=== PATIENT | female | born 1965 | race African-American/Black ===

== ENCOUNTER 2019-08-19 15:59 | Emergency (ER) | payer MEDICAID ==
[~2019-08-19] VITALS: Ht 160 cm; Wt 68.9 kg
[2019-08-19] MEDS ORDERED: ATORVASTATIN CA10 MG ORAL (16:12)
[2019-08-19] MEDS ORDERED: NORVASC10 MG ORAL (16:12)
[2019-08-19] MEDS ORDERED: PRILOSEC OTC20 MG ORAL (16:12)
--- NOTE | 2019-08-19 16:28 | NUR ---
ED Nurse Note: Pt walked in from home. Pt injured R foot on dresser thursday. Pt complains of pain 3/10 weight bearingn and 6/10 non-weight bearing. Pt also has numbness interior side of R foot. Patient alert and orientedx4.
--- NOTE | 2019-08-19 16:30 | NUR ---
ED Nurse Note: x-ray at bedside.
--- NOTE | 2019-08-19 16:57 | Emergency Room Report ---
History of Present Illness General Chief Complaint: Lower Extremity Injury Source: Patient Present Illness HPI 54-year-old female with no segment past medical history here complaining of pain and swelling right foot after having it hit her dresser yesterday. Third and fourth phalanges of the right foot are tender to palpation and swollen. Patient has reduced range of motion of the affected side. No ecchymosis noted. Patient denies tingling and numbness. Patient reports that she has had surgery in the same foot few years ago. Denies any pain radiation, tingling and numbness, and calf tenderness. Has not taken medication for symptom relief other than [id number] Motrin. Patient is walking with a limp and is rating the pain 10 out of 10 at this time. Denies other associated symptoms such as chest pain, shortness of breath, palpitation, no other associated symptoms. Allergies: Coded Allergies: CODEINE (Verified Allergy, Unknown, 12/07/11) Patient History Past Medical History: see triage record Past Surgical History: unable to obtain Pertinent Family History: none Last Menstrual Period: hysterectomy 2009 Now: No Immunizations: UTD Reviewed Nursing Documentation: PMH: Agreed; PSxH: Agreed Nursing Documentation-PMH Past Medical History: No History, Except For Hx Hypertension: Yes Review of Systems All Other Systems: negative except mentioned in HPI Physical Exam Vital Signs Date Time Temp Pulse Resp B/P (MAP) Pulse Ox O2 Delivery O2 Flow Rate FiO2 08/19/19 16:05 98.2 76 18 166/103 (124) 98 Room Air Sp02 EP Interpretation: reviewed, normal General Appearance: no apparent distress, alert, GCS 15, non-toxic Head: normocephalic, atraumatic Eyes: bilateral eye normal inspection, bilateral eye PERRL ENT: hearing grossly normal, normal pharynx, no angioedema, normal voice Neck: full range of motion, supple/symm/no masses Respiratory: chest non-tender, lungs clear, normal breath sounds, no rhonchi, speaking full sentences Cardiovascular #1: regular rate, rhythm, no edema, no murmur Cardiovascular #2: 2+ dorsalis pedis (R), 2+ dorsalis pedis (L) Gastrointestinal: normal bowel sounds, non tender, soft, non-distended, no guarding, no rebound Genitourinary: no CVA tenderness Musculoskeletal: back normal, tender - Right third and fourth phalanges of the foot Neurologic: normal inspection, alert, oriented x3 Psychiatric: judgement/insight normal, memory normal, mood/affect normal, no suicidal/homicidal ideation Skin: no rash Lymphatic: normal inspection, no adenopathy Procedures Splinting Splinting : Consent: Verbal Location: right foot Splint: poserior short Pre-Proc Neuro Vasc Exam: normal Post-Proc Neuro Vasc Exam: normal Patient Tolerated: Well Complications: None Progress crutches were provided Medical Decision Making PA Attestation All diagnoses and treatment plans were reviewed and discussed with my supervising physician Dr. Goodrich Diagnostic Impression: Primary Impression: Right foot injury Additional Impression: Foot fracture, right ER Course 54-year-old female with no segment past medical history here complaining of pain and swelling right foot after having it hit her dresser yesterday. Third and fourth phalanges of the right foot are tender to palpation and swollen. Patient has reduced range of motion of the affected side. No ecchymosis noted. Patient denies tingling and numbness. Patient reports that she has had surgery in the same foot few years ago. Denies any pain radiation, tingling and numbness, and calf tenderness. Has not taken medication for symptom relief other than [id number] Motrin. Patient is walking with a limp and is rating the pain 10 out of 10 at this time. Denies other associated symptoms such as chest pain, shortness of breath, palpitation, no other associated symptoms. Ddx considered but are not limited to: foot fracture, foot sprain, foot contusion, foot strain Vital signs: are WNL, pt. is afebrile H&PE are most consistent with: Foot fracture ORDERS: foot Xray, ibuprofen, Tylenol, splint and crutches ED INTERVENTIONS: None required at this time. DISCHARGE: At this time pt. is stable for d/c to home. Will provide printed patient care instructions, and any necessary prescriptions. Care plan and follow up instructions have been discussed with the patient prior to discharge. Patient to follow-up with sales account specialist through her primary care first if worsening symptoms return to emergency room. Patient was handed a copy of her x-ray report Other X-Ray Diagnostic Results Other X-Ray Diagnostic Results : X-Ray ordered: foot xray right # of Views/Limited Vs Complete: 3 View Indication: Pain EP Interpretation: Yes PA Xray: Interpretation reviewed, by supervising MD, and agrees with findings. Interpretation: other - fx right forth phalax Impression: Other - foot fx Electronically Signed by: Wes Pascal PA-C Last Vital Signs Date Time Temp Pulse Resp B/P (MAP) Pulse Ox O2 Delivery O2 Flow Rate FiO2 08/19/19 16:05 98.2 76 18 166/103 (124) 98 Room Air Disposition: HOME, SELF-CARE Condition: Stable Scripts Acetaminophen* (TYLENOL EXTRA STRENGTH*) 500 Mg Tablet 500 MG ORAL Q6H PRN for Mild Pain/Temp > 100.5, #30 TAB 0 Refills Prov: Wes Frank 08/19/19 Ibuprofen (Ibu) 800 Mg Tablet 800 MG PO TID, #21 TAB Prov: Wes Frank 08/19/19 Patient Instructions: Toe Fracture Additional Instructions: Keep splint on until seen by sales account specialist due to his clinical examination of tenderness to palpation at the site of injury it is advised to keep the splint on. If worsening symptoms return to the emergency room. Wes Frank Aug 19, 2019 16:57
[2019-08-19] MEDS ORDERED: IBU800 MG PO (16:58)
[2019-08-19] MEDS ORDERED: TYLENOL EXTRA500 MG ORAL (16:59)
--- NOTE | 2019-08-19 17:38 | NUR ---
ED Nurse Note: splint applied RT leg by rehab nursing tech at bedside.
--- NOTE | 2019-08-19 17:54 | Diagnostic Imaging Report ---
EXAM: XR Right Foot Complete, 3 or More Views CLINICAL HISTORY: TRAUMA TECHNIQUE: Frontal, lateral and oblique views of the right foot. COMPARISON: None FINDINGS: Bones joints: Nondisplaced fracture of the right fourth proximal phalanx. Osteopenia. Postsurgical change in the right first proximal phalanx. Mild degenerative changes of the right first MTP joint. Soft tissues: Soft tissue swelling of the dorsal right forefoot and right fourth digit. IMPRESSION: 1. Nondisplaced fracture of the right fourth proximal phalanx. 2. Soft tissue swelling.
[2019-08-19 17:57] VITALS: BP 124/76
--- NOTE | 2019-08-19 17:59 | NUR ---
ER DISCHARGE NOTE: Patient is cleared to be discharged per ERMD, pt is aox4, on room air, with stable vital signs. pt was given dc and prescription instructions, pt was able to verbalize understanding, pt id band removed . pt is able to ambulate with steady gait. pt took all belongings.
== END 2019-08-19 18:00 | disposition home or self-care (01) ==
LOC: EMR 16:30
DX: S92.514A Nondisplaced fracture of proximal phalanx of right lesser toe(s), initial encounter for closed fracture (principal); I10 Essential (primary) hypertension; W22.09XA Striking against other stationary object, initial encounter; Y93.9 Activity, unspecified; Y92.9 Unspecified place or not applicable; Z90.710 Acquired absence of both cervix and uterus; Z88.5 Allergy status to narcotic agent
CPT/HCPCS: 29515; 73630; Z7502; 99283

== ENCOUNTER 2019-08-20 08:58 | Emergency (ER) | payer MEDICAID ==
[~2019-08-20] VITALS: Ht 162.6 cm; Wt 69.9 kg
[~2019-08-20 08:58] MED LIST: ATORVASTATIN CA10 MG ORAL; IBU800 MG PO; NORVASC10 MG ORAL; PRILOSEC OTC20 MG ORAL; TYLENOL EXTRA500 MG ORAL
--- NOTE | 2019-08-20 09:22 | Emergency Room Report ---
History of Present Illness General Chief Complaint: General Complaint Source: Patient, Medical Record Present Illness HPI Patient presents with complaints of shifting and moving of her splint that was applied yesterday patient was diagnosed with a right toe Fracture She denies any repeat injury denies any other fall since then most of the discomfort is at the lateral Fourth toe As the splint was essentially falling off she presents for further evaluation Allergies: Coded Allergies: CODEINE (Verified Allergy, Unknown, 12/07/11) Patient History Past Medical History: see triage record Last Menstrual Period: N/A Now: No - hysterectomy 2009 Reviewed Nursing Documentation: PMH: Agreed; PSxH: Agreed Nursing Documentation-PMH Hx Cardiac Problems: No - Arthritis, Hypercholesterolemia Hx Hypertension: Yes Review of Systems All Other Systems: negative except mentioned in HPI Physical Exam Vital Signs Date Time Temp Pulse Resp B/P (MAP) Pulse Ox O2 Delivery O2 Flow Rate FiO2 08/20/19 09:03 98.8 80 15 159/90 (113) 97 Room Air Sp02 EP Interpretation: reviewed, normal General Appearance: well appearing, no apparent distress Head: normocephalic, atraumatic Eyes: bilateral eye PERRL ENT: hearing grossly normal, normal pharynx Neck: supple Musculoskeletal: other - Mild swelling noted to the lateral foot, no obvious ecchymosis neurovascularly intact Neurologic: alert, oriented x3 Skin: other - As above mild swelling Lymphatic: no adenopathy Procedures Splinting Splinting : Consent: Verbal Location: Right foot Hand-Made Type: plaster Splint: poserior short Pre-Proc Neuro Vasc Exam: normal Post-Proc Neuro Vasc Exam: normal Patient Tolerated: Well Complications: None Medical Decision Making Diagnostic Impression: Primary Impression: foot fracture ER Course There is no evidence of compartment syndrome The splint is reapplied patient remains neurovascular intact And will have nonweightbearing and close outpatient follow-up Last Vital Signs Date Time Temp Pulse Resp B/P (MAP) Pulse Ox O2 Delivery O2 Flow Rate FiO2 08/20/19 09:03 98.8 80 15 159/90 (113) 97 Room Air Status: improved Disposition: HOME, SELF-CARE Condition: Improved Referrals: [facility] Open 24 hour /7 days a week by Appointment Only [address] [facility] [address] [address] Patient Instructions: Toe Fracture, [id number] Additional Instructions: Patient is provided with the discharge instructions notified to follow up with primary doctor in the next 2-3 days otherwise return to the er with any worsening symptoms. Please note that this report is being documented using [employer] technology. This can lead to erroneous entry secondary to incorrect interpretation by the dictating instrument. Jamel Nolen DO Aug 20, 2019 09:22
--- NOTE | 2019-08-20 09:35 | NUR ---
ED Nurse Note: Pt came in from home for splint re-done. Was in [facility] ER yesterday and had splint applied. NO complaint of pain or discomfort at this time. AOOx4, vital signs stable. Will cont to monitor.
[2019-08-20 09:38] VITALS: BP 151/79
[2019-08-20 09:41] VITALS: BP 159/90
--- NOTE | 2019-08-20 09:41 | NUR ---
ED Nurse Note: Splint applied on R ankle/foot. Pt tolerated well. AOOx4, vital signs stable. NAD. Pt verbalized understadning of D/C instructions. Pt was able to ambulate out with steady gait, left with all belongings.
== END 2019-08-20 09:41 | disposition home or self-care (01) ==
LOC: EMR 09:19
DX: S92.901A Unspecified fracture of right foot, initial encounter for closed fracture (principal); X58.XXXA Exposure to other specified factors, initial encounter; Y92.9 Unspecified place or not applicable; Z88.6 Allergy status to analgesic agent; I10 Essential (primary) hypertension; E78.00 Pure hypercholesterolemia, unspecified; M19.90 Unspecified osteoarthritis, unspecified site; Z90.710 Acquired absence of both cervix and uterus
CPT/HCPCS: 29515; Z7502; 99282